=== PATIENT | female | born 1960 | race Caucasian/White ===

== ENCOUNTER 2020-04-30 16:11 | Outpatient (CLI) | payer OTHER ==
--- NOTE | 2020-05-01 08:48 | MMO ---
Bilateral MAMMO Bilat Screen [facility]. CLINICAL HISTORY: Patient is 59 years old and is seen for screening. The patient has no family history of breast cancer. The patient has no personal history of cancer. VIEWS: The views performed were: bilateral craniocaudal with tomosynthesis and bilateral mediolateral oblique with tomosynthesis. FILMS COMPARED: The present examination has been compared to prior imaging studies performed at [facility] on 06/22/2012, and at [facility] on 08/11/2003 and 10/21/2004. This study has been interpreted with the assistance of computer-aided detection. MAMMOGRAM FINDINGS: The breasts are heterogeneously dense, which could obscure a lesion on mammography. There are no suspicious masses, suspicious calcifications, or new areas of architectural distortion. IMPRESSION: THERE IS NO MAMMOGRAPHIC EVIDENCE OF MALIGNANCY. A ROUTINE FOLLOW-UP MAMMOGRAM IN 1 YEAR IS RECOMMENDED. THE RESULTS OF THIS EXAM WERE SENT TO THE PATIENT. ACR BI-RADS Category 1 - Negative MAMMOGRAPHY NOTE: 1. A negative mammogram report should not delay a biopsy if a dominant of clinically suspicious mass is present. 2. Approximately 10% to 15% of breast cancers are not detected by mammography. 3. Adenosis and dense breasts may obscure an underlying neoplasm. Reported by: DAVINA MARTIN MD Electonically Signed: [id number]
== END 2020-04-30 16:12 | disposition home or self-care (01) ==
LOC: BICMAMMO 16:11
PROVIDERS: ATTEND Student in an Organized Health Care Education/Training Program
DX: Z12.31 Encounter for screening mammogram for malignant neoplasm of breast (principal)
CPT/HCPCS: 77063; 77067

== ENCOUNTER 2022-11-09 07:49 | Outpatient (CLI) | payer OTHER | END 2022-11-09 07:50 | disposition home or self-care (01) | LOC: SCSMRI 07:49 | PROVIDERS: ATTEND Physician Assistant Medical | DX: M51.36 Other intervertebral disc degeneration, lumbar region (principal); M47.22 Other spondylosis with radiculopathy, cervical region; M54.17 Radiculopathy, lumbosacral region; M48.061 Spinal stenosis, lumbar region without neurogenic claudication; M47.813 Spondylosis without myelopathy or radiculopathy, cervicothoracic region | CPT/HCPCS: 72141; 72148 ==

== ENCOUNTER 2024-07-04 12:14 | Inpatient (IN) | payer BC ==
[2024-07-04] MEDS ORDERED: Calcium Carbonate 500 MG ChewTAB PO PRN (15:37)
[2024-07-04] MEDS ORDERED: Senokot S 8.6-50 MG TAB PO PRN (15:37)
[2024-07-04] MEDS ORDERED: Ondansetron PF 4 MG/2 ML Vial IVP PRN (15:37)
[2024-07-04] MEDS ORDERED: levETIRAcetam 500 MG (5 mL) VIAL SLOW IVP SCH ×2 (15:45→21:00)
[2024-07-04 16:23] LABS: Lactic Acid 0.83 mmol/L (0.50-2.20)
[2024-07-04] MEDS: Lorazepam 2 MG/ML VIAL SLOW IVP SCH (16:43)
[2024-07-04] MEDS: Potassium Chloride 20 MEQ in Lactated Ringer's 1,000 ML IV SCH (16:45)
[2024-07-04] MEDS: Lubiprostone 24 MCG CAP PO SCH (17:02)
[2024-07-04] MEDS: Atorvastatin Calcium 40 MG TAB PO SCH (21:10)
[2024-07-04] MEDS: Gabapentin 400 MG CAP PO SCH (21:10)
[2024-07-04] MEDS: DULoxetine 30 MG CAP PO SCH (21:10)
[2024-07-04] MEDS: Famotidine/PF 20 mg/2ml Vial SLOW IVP SCH (21:43)
[2024-07-04] MEDS: Labetalol HCl 100 MG/20 ML VIAL SLOW IVP PRN (21:43)
[2024-07-04] MEDS: Lorazepam 2 MG/ML VIAL SLOW IVP PRN (22:32)
[2024-07-05] MEDS: Dexmedetomidine In 0.9 % NaCl 100 ML IVPB SCH (01:27)
[2024-07-05 05:10] LABS: #Basophils Less than 0.03 10x3/uL (0.0-0.2); %Basophils 0.1 % (0.0-1.0); %Eosinophils 0.4 % (0.0-10.0); %Lymphocytes 11.2 % (21.0-51.0); %Monocytes 4.7 % (0.0-10.0); %Neutrophils 83.1 % (42.0-75.0); Hematocrit 39.5 % (36.0-47.0); Hemoglobin 12.9 g/dL (12.0-16.0); Mean Corpuscular HGB CONC 32.7 g/dL (32.0-36.0); Mean Corpuscular Hemoglobin 29.9 pg (27.0-31.0); Mean Corpuscular Volume 91.6 fL (78.0-98.0); Mean Platelet Volume 10.1 fL (7.4-10.4); Platelet Count 145 10x3/uL (130-400); RBC Distribution Width 13.2 % (11.5-14.5); Red Blood Cell (RBC) Count 4.31 mill/uL (4.20-5.40)
[2024-07-05 05:13] VITALS: BMI 17.4
[2024-07-05 05:19] LABS: Hemoglobin A1c 5.5 % (4.0-6.0)
[2024-07-05 06:06] LABS: ALT (SGPT) 22 U/L (Less than 34); AST (SGOT) 29 U/L (11-34); Albumin 3.2 g/dL (3.1-4.5); Alkaline Phosphatase 77 U/L (40-110); Anion Gap 14 mmol/L (10-20); BUN (Urea Nitrogen) 9 mg/dL (9.8-20.1); Bilirubin, Total 0.5 mg/dL (0.3-1.2); Calc. Creatinine Clearance 84 mL/min (70-130); Calcium 9.2 mg/dL (7.8-10.44); Carbon Dioxide 23 mmol/L (23-31); Cardiac Risk 3.4 (Less than 4.5); Chloride 104 mmol/L (98-107); Cholesterol 168 mg/dl (< 200 Desired); Estimated GFR 106; Globulin 2.6 g/dL (2.4-3.5); Glucose 83 mg/dL (80-115); HDL Cholesterol 50 mg/dL (>60 Neg Risk); LDL Cholesterol, Calculated 97 mg/dL; Magnesium 2.1 mg/dL (1.6-2.6); Potassium 3.9 mmol/L (3.5-5.1); Protein, Total 5.8 g/dL (5.8-8.1); Sodium 137 mmol/L (136-145); Triglycerides 104 mg/dL (Less than 150)
[2024-07-05] MEDS: Naloxegol 12.5 MG TAB PO SCH (09:00)
[2024-07-05] MEDS: Enoxaparin 40 MG (0.4 mL) SYRINGE SC SCH (09:00)
[2024-07-05] MEDS: clonazePAM 0.5 MG TAB PO SCH ×2 (12:30→20:11)
[2024-07-05] MEDS: Baclofen 10 MG TAB PO SCH ×2 (12:30→20:11)
[2024-07-05 18:22] VITALS: BMI 17.4
[2024-07-06] MEDS: hydrALAZINE 20 MG/ML VIAL SLOW IVP PRN (05:08)
[2024-07-06 05:25] LABS: Anion Gap 15 mmol/L (10-20); BUN (Urea Nitrogen) 9 mg/dL (9.8-20.1); Calc. Creatinine Clearance 72 mL/min (70-130); Carbon Dioxide 25 mmol/L (23-31); Chloride 102 mmol/L (98-107); Estimated GFR 103; Glucose 97 mg/dL (80-115); Potassium 3.7 mmol/L (3.5-5.1); Sodium 138 mmol/L (136-145)
[2024-07-06 05:32] LABS: #Basophils Less than 0.03 10x3/uL (0.0-0.2); %Basophils 0.2 % (0.0-1.0); %Eosinophils 1.5 % (0.0-10.0); %Lymphocytes 30.2 % (21.0-51.0); %Monocytes 9.3 % (0.0-10.0); %Neutrophils 58.4 % (42.0-75.0); Hematocrit 40.5 % (36.0-47.0); Hemoglobin 13.5 g/dL (12.0-16.0); Mean Corpuscular HGB CONC 33.3 g/dL (32.0-36.0); Mean Corpuscular Hemoglobin 29.7 pg (27.0-31.0); Mean Corpuscular Volume 89.2 fL (78.0-98.0); Platelet Count 174 10x3/uL (130-400); RBC Distribution Width 13.4 % (11.5-14.5); Red Blood Cell (RBC) Count 4.54 mill/uL (4.20-5.40)
[2024-07-06] MEDS: FLU (Fluarix Triv) TS24-25(6MOS UP)/PF 45 MCG/0.5 ML Syringe IM ONE (10:22)
[2024-07-06] MEDS: diphenhydrAMINE 25 MG CAP PO PRN (20:47)
[2024-07-07 06:01] LABS: #Basophils Less than 0.03 10x3/uL (0.0-0.2); %Basophils 0.2 % (0.0-1.0); %Eosinophils 1.5 % (0.0-10.0); %Lymphocytes 32.7 % (21.0-51.0); %Monocytes 7.5 % (0.0-10.0); %Neutrophils 57.9 % (42.0-75.0); Hematocrit 39.1 % (36.0-47.0); Hemoglobin 12.7 g/dL (12.0-16.0); Mean Corpuscular HGB CONC 32.5 g/dL (32.0-36.0); Mean Corpuscular Hemoglobin 29.6 pg (27.0-31.0); Mean Corpuscular Volume 91.1 fL (78.0-98.0); Mean Platelet Volume 9.4 fL (7.4-10.4); Platelet Count 280 10x3/uL (130-400); RBC Distribution Width 13.9 % (11.5-14.5); Red Blood Cell (RBC) Count 4.29 mill/uL (4.20-5.40)
[2024-07-07 06:17] LABS: Anion Gap 13 mmol/L (10-20); BUN (Urea Nitrogen) 14 mg/dL (9.8-20.1); Calc. Creatinine Clearance 73 mL/min (70-130); Calcium 8.7 mg/dL (7.8-10.44); Carbon Dioxide 26 mmol/L (23-31); Chloride 105 mmol/L (98-107); Estimated GFR 104; Glucose 96 mg/dL (80-115); Potassium 3.3 mmol/L (3.5-5.1); Sodium 141 mmol/L (136-145)
[2024-07-07] MEDS: Enoxaparin 30 MG (0.3 mL) SYRINGE SC SCH (09:30)
[2024-07-08 04:14] LABS: #Basophils Less than 0.03 10x3/uL (0.0-0.2); %Basophils 0.1 % (0.0-1.0); %Eosinophils 1.9 % (0.0-10.0); %Lymphocytes 30.7 % (21.0-51.0); %Monocytes 7.1 % (0.0-10.0); %Neutrophils 59.9 % (42.0-75.0); Hematocrit 39.8 % (36.0-47.0); Hemoglobin 12.6 g/dL (12.0-16.0); Mean Corpuscular HGB CONC 31.7 g/dL (32.0-36.0); Mean Corpuscular Hemoglobin 29.2 pg (27.0-31.0); Mean Corpuscular Volume 92.3 fL (78.0-98.0); Mean Platelet Volume 9.4 fL (7.4-10.4); Platelet Count 270 10x3/uL (130-400); RBC Distribution Width 13.6 % (11.5-14.5); Red Blood Cell (RBC) Count 4.31 mill/uL (4.20-5.40)
[2024-07-08 04:29] LABS: Anion Gap 12 mmol/L (10-20); BUN (Urea Nitrogen) 21 mg/dL (9.8-20.1); Calc. Creatinine Clearance 73 mL/min (70-130); Calcium 8.7 mg/dL (7.8-10.44); Carbon Dioxide 27 mmol/L (23-31); Chloride 106 mmol/L (98-107); Estimated GFR 104; Glucose 103 mg/dL (80-115); Potassium 3.6 mmol/L (3.5-5.1); Sodium 141 mmol/L (136-145)
[2024-07-08] MEDS: Acetaminophen 325 MG TAB PO PRN (10:28)
[2024-07-08 17:22] VITALS: BP 126/72; TEMP 97.8
== END 2024-07-08 18:30 | disposition home or self-care (01) | DRG 70 ==
LOC: IMCU/EMU 14:21 → 2SE 07-06 13:57
PROVIDERS: ADMIT Internal Medicine; ATTEND Internal Medicine
PROC: 4A10X4Z Monitoring of Central Nervous Electrical Activity, External Approach (ICD-10-PCS; principal; 2024-07-04)
DX: G93.41 Metabolic encephalopathy (principal); E43 Unspecified severe protein-calorie malnutrition; I69.351 Hemiplegia and hemiparesis following cerebral infarction affecting right dominant side; Z68.1 Body mass index [BMI] 19.9 or less, adult; T42.8X5A Adverse effect of antiparkinsonism drugs and other central muscle-tone depressants, initial encounter; E87.6 Hypokalemia; E78.5 Hyperlipidemia, unspecified; G25.2 Other specified forms of tremor; Z87.820 Personal history of traumatic brain injury
CPT/HCPCS: 36415; 36416; 71045; 80048; 80053; 80061; 83036; 83605; 83735; 84146; 84443; 85025; 95816; J0360; J1650; J2060; J3480; J3490; J7120